=== PATIENT | male | born 1960 | race African-American/Black ===

== ENCOUNTER 2018-12-15 22:19 | Emergency (ER) | payer OTHER ==
[~2018-12-15] VITALS: Ht 185.4 cm; Wt 97.9 kg
[2018-12-15 22:28] VITALS: Ht 185.4 cm; Wt 97.9 kg
--- NOTE | 2018-12-16 02:15 | ERD ---
ER Documentation Chief Complaint Chief Complaint rt leg pain HPI The patient is a 58-year-old male, presenting to the ER because of right leg pain and swollen for the last 2 days, denies similar symptoms previously, denies trauma, denies fever, chills, neck pain, chest pain, dyspnea, hematemesis, abdominal pain, vomiting. He does not smoke or drink Past medical history: Diabetes mellitus Past surgical history: None ROS All systems reviewed and are negative except as per history of present illness. Medications Home Meds Active Scripts Ibuprofen* (Motrin*) 600 Mg Tab, 600 MG PO Q6H PRN for PAIN AND OR ELEVATED TEMP, #30 TAB Prov:ALEX REES MD 12/16/18 Allergies Allergies: Coded Allergies: No Known Drug Allergies (Verified Allergy, Unknown, 12/15/18) Physical Exam Vitals Vital Signs Date Temp Pulse Resp B/P (MAP) Pulse Ox O2 O2 Flow FiO2 Time Delivery Rate 12/15/18 98.4 76 18 116/70 97 22:28 (85) Physical Exam Const: No acute distress. Head: Atraumatic. Eyes: Normal Conjunctiva. ENT: Normal External Ears, Nose and Mouth. Neck: Full range of motion. No meningismus. Resp: Clear to auscultation bilaterally. Cardio: Regular rate and rhythm. Abd: Soft, non distended, normal bowel sounds, non tender. Skin: No petechiae or rashes. Back: No midline or flank tenderness. Ext: Right lower extremity is mildly edematous with mild calf tenderness Neur: Awake and alert. No focal deficit Psych: Normal Mood and Affect. Results 24 hrs Current Medications Medications Dose Sig/Jhony Start Time Status Last (Trade) Ordered Route PRN Stop Time Admin Dose Reason Admin 1 tab ONCE ONCE 12/16/18 DC 12/16/18 Acetaminophen PO 03:00 02:54 / 12/16/18 03:01 Hydrocodone Bitart (Beltrami (5/325)) Ondansetron 4 mg ONCE STAT 12/16/18 DC 12/16/18 HCl (Zofran ODT 02:39 02:53 Odt) 12/16/18 02:41 Procedures/[place] [id number] Radiology Main Line: [phone] DIAGNOSTIC IMAGING REPORT Patient: MIGUELITO HENDRIX : 1960 Age: 58 Sex: M [id number] DOS: 12/16/18 0239 Ordering MD: ALEX REES MD Location: E/R Room/Bed: PROCEDURE: US Lower extremity venous. CLINICAL INDICATION: Right lower extremity pain TECHNIQUE: Multiple sonographic images of the right lower extremity deep venous system obtained utilizing grayscale, color-flow, compressive sonography and doppler imaging with augmentation. The images were reviewed on a PACS workstation. COMPARISON: None. FINDINGS: There is normal compressibility and flow within the right common femoral, deep femoral, superficial femoral, posterior tibial, peroneal and popliteal veins. IMPRESSION: No sonographic evidence for deep venous thrombosis. RPTAT: [facility] Physician Freddie Date Time Electronically viewed and signed by Physician Freddie on 12/16/2018 04:46 xB/ CC: ALEX REES MD [id number] MEDICAL MAKING DECISION: The patient is a 58-year-old male, presenting to the ER because of acute right lower extremity edema of unclear etiology, was treated with Beltrami 5 mg p.o. for pain and Zofran ODT for nausea with good response, is stable for outpatient follow-up The differential diagnoses considered include but are not limited to DVT, lymphedema, cellulitis, peripheral vascular disease, venous insufficiency Departure Diagnosis: Primary Impression: Peripheral edema Condition: Good Comments He was discharged with Motrin I discussed the findings with the patient. I advised the patient to follow-up with the primary physician in about 2-3 days, sooner if needed and return if any concern. Disclaimer: Inadvertent spelling and grammatical errors are likely due to EHR/dictation software use and do not reflect on the overall quality of patient care. Also, please note that the electronic time recorded on this note does not necessarily reflect the actual time of the patient encounter. ALEX REES MD Dec 16, 2018 02:15
[2018-12-16] MEDS ORDERED: ONDANSETRON (ODT) 4 MG TAB ODT STA (02:39)
[2018-12-16] MEDS ORDERED: HYDROCODONE/APAP (5/325) TAB PO ONE (03:00)
[2018-12-16] MEDS ORDERED: IBUP-1542 PO (05:04)
[2018-12-16 05:10] VITALS: BP 127/77; PULSE 57; RESP 16
== END 2018-12-16 05:11 | disposition home or self-care (01) ==
LOC: E/R 22:19
DX: R60.0 Localized edema (principal)
CPT/HCPCS: 93971